=== PATIENT | female | born 1985 | race Caucasian/White ===

== ENCOUNTER 2016-10-26 19:36 | Emergency (ER) | payer OTHER ==
[~2016-10-26] VITALS: Ht 165.1 cm; Wt 65.0 kg
[2016-10-26 19:42] VITALS: BP 143/76; PULSE 93; RESP 14; TEMP 98; O2SAT 100
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
[2016-10-26] MEDS ORDERED: LACTATED RINGER'S 1000 ML INJ 1,000 ML IV ONE (22:00)
== END 2016-10-26 22:26 | disposition home or self-care (01) ==
LOC: HOBED 19:36
DX: Z04.1 Encounter for examination and observation following transport accident (principal); O36.8120 Decreased fetal movements, second trimester, not applicable or unspecified; Z3A.20 20 weeks gestation of pregnancy; V43.52XA Car driver injured in collision with other type car in traffic accident, initial encounter; Y92.414 Local residential or business street as the place of occurrence of the external cause
CPT/HCPCS: 99283

== ENCOUNTER 2017-03-09 05:13 | Inpatient (IN) | payer OTHER ==
[~2017-03-09] VITALS: Ht 154.9 cm; Wt 57.0 kg
[2017-03-09] VITALS (30 sets, daily range): BP systolic 119–173; BP diastolic 38–134; PULSE 72–141; RESP 17–20; TEMP 97.8–98.6
[2017-03-09] MEDS ORDERED: PREN1TAB45 PO (05:57)
[2017-03-09] MEDS ORDERED: LACTATED RINGER'S 1000 ML INJ 1,000 ML IV PRN (06:07)
[2017-03-09] MEDS ORDERED: LACTATED RINGER'S 1000 ML INJ 1,000 ML IV SCH (06:07)
[2017-03-09] MEDS ORDERED: LIDOCAINE HCL 1% 50 ML VIAL I-DERMAL PRN (06:15)
[2017-03-09] MEDS ORDERED: CITRIC ACID-SODIUM CITRATE LIQ 30 ML UDC PO SCH (06:15)
[2017-03-09] MEDS ORDERED: ONDANSETRON HCL 4 MG/2 ML VIAL IV PUSH PRN (06:15)
[2017-03-09] MEDS ORDERED: OXYTOCIN 30 UNITS-500ML PREMIX 500 ML IV ONE ×2 (06:15→16:00)
[2017-03-09] MEDS ORDERED: MINERAL OIL 10 ML VIAL TOPICAL PRN (06:15)
[2017-03-09] MEDS ORDERED: LIDOCAINE HCL 1% 50 ML VIAL INFIL PRN (06:15)
[2017-03-09] MEDS ORDERED: SODIUM CHLORID 0.9% 500 ML INJ 500 ML IV PRN (06:15)
--- NOTE | 2017-03-09 06:16 | PD ---
HPI Chief Complaint ctx Date Seen: Mar 09, 2017 Time Seen: 06:09 Travel History International Travel<30 Days: No Contact w/Intl Traveler<30Days: No Known Affected Area: No History of Present Illness HPI Pt is a 31y/o G1 @ 39.1wks. She has PNC with MOI. She presents today for c/o ctx which started at 2am. +Bloody show. No LOF. +FM. She denies any complications this . GBS neg. Weeks Gestation: 39 Para: 0 : 1 Last Menstrual Period: Mar 09, 2017 History Past Medical History Medical History: Denies Significant Hx Obstetric History Obstetric History 1. current Past Surgical History Narrative Surgical eye sx as a baby Family History Family History: Negative Social History Alcohol Use: No Tobacco Use: No Substance Abuse: No Allergies-Medications (Allergen,Severity, Reaction): Coded Allergies: No Known Allergies (Unverified Adverse Reaction, Unknown, 03/09/17) Home Meds Reported Medications Vit,Calc76/Iron/Folic (Pnv 29-1 Tablet) 29 Mg Iron-1 Mg Tablet, 1 TAB PO DAILY 03/09/17 Review of Systems Except as stated in HPI: all other systems reviewed are Neg Physical Exam Narrative General: well developed, well nourished, uncomfortable with ctx HEENT: normocephalic atraumatic, extraocular movements intact, neck supple Abdomen: soft, gravid, nontender, nondistended Uterus: fundus term Extremities: full range of motion Skin: normal coloration, no rashes, no suspicious skin lesions noted Neurologic: cranial nerves 2-12 grossly intact, normal muscle tone, normal gait Psychiatric: normal mood and affect, appropriate FHTs: 130, +accels, single late appearing decel , moderate variability, reactive [place]: q4m Cvx: 5-6/80/-2 Data Data Vital Signs Reviewed: Yes Orders Orders Ob (2e) Additional Admit Info (03/09/17 05:49) Vital Signs (Adult) .ON ADMISSION (03/09/17 06:07) ^ Labor Status (03/09/17 06:07) ^ Non Stress Test (03/09/17 06:07) Vital Signs (Adult) .Per protocol (03/09/17 06:07) Heart (03/09/17 06:07) Amnioinfusion (03/09/17 06:07) Urinary Catheter Management .ONCE (03/09/17 06:07) Diet Liquid (03/09/17 Breakfast) Lactated Ringer's 1000 Ml Inj (Lr 1000 M (03/09/17 06:07) Lactated Ringer's 1000 Ml Inj (Lr 1000 M (03/09/17 06:07) Sodium Chlorid 0.9% 500 Ml Inj (Ns 500 M (03/09/17 06:15) Sodium Chlor 0.9% 1000 Ml Inj (Ns 1000 M (03/09/17 06:27) Lidocaine 1% Inj (50 Ml) (Xylocaine 1% I (03/09/17 06:15) Citric Acid-Sodium Citrate Liq (Bicitra (03/09/17 06:15) Ondansetron Inj (Zofran Inj) (03/09/17 06:15) Fentanyl Inj (Fentanyl Inj) (03/09/17 06:15) Fentanyl Inj (Fentanyl Inj) (03/09/17 06:15) Complete Blood Count With Diff (03/09/17 06:07) Hold Clot (03/09/17 06:07) Abo/Rh Blood Type (03/09/17 06:07) Urinalysis - C+S If Indicated (03/09/17 06:07) Drug Screen, Random Urine (03/09/17 06:07) Resp Oxygen Non Rebreathe Mask (03/09/17 ) ^ Epidural / Intrathecal Infus (03/09/17 06:07) Oxytocin 30 Units-500ml Premix (Pitocin (03/09/17 06:15) Lidocaine 1% Inj (50 Ml) (Xylocaine 1% I (03/09/17 06:15) Light Mineral Oil (Muri-Lube Oil) (03/09/17 06:15) Group B Strep: Negative MDM Plan 31y/o G1 @ 39.1wks in active labor -- /-2 -- ctx q4m -- GBS neg -- FHTs cat [address] Dr[address] Dunne (button buttonhole marker) notified of pt status and plan of care. He will assume care of the pt. Courtesy orders placed. Diagnosis Diagnosis: Primary Impression: 39 weeks gestation of Additional Impression: Uterine contractions during Ron Sanchez MD Mar 09, 2017 06:16
[2017-03-09 06:22] LABS: AUTOMATED NEUTROPHIL # 5.4 TH/MM3 (1.8-7.7); BASOPHIL % 0.4 % (0.0-2.0); EOSINOPHIL % 0.4 % (0.0-4.0); HEMATOCRIT 33.9 % (35.0-46.0); HEMO FLAGS DIFF FINAL; LYMPHOCYTE # 1.2 TH/MM3 (1.0-4.8); MEAN CELL VOLUME 84.2 FL (80.0-100.0); MEAN CORPUSCULAR HEMOGLOBIN 28.7 PG (27.0-34.0); MEAN CORPUSCULAR HGB CONC 34.1 % (32.0-36.0); MONO % 8.4 % (0.0-8.0); NEUT % 73.8 % (16.0-70.0); PLATELET COUNT 128 TH/MM3 (150-450); RED BLOOD COUNT 4.03 MIL/MM3 (4.00-5.30); RED CELL DISTRIBUTION WIDTH 14.1 % (11.6-17.2); WHITE BLOOD COUNT 7.3 TH/MM3 (4.0-11.0)
[2017-03-09 06:27] LABS: BACTERIA, URINE OCC /hpf; BLOOD, URINE NEG (NEG); CALCIUM OXALATE CRYSTALS,URINE RARE /hpf; COMMENT (UR) CULTURE INDICATED; CULTURE IF INDICATED CULTURE INDICATED; GLUCOSE,URINE NEG (NEG); KETONE, URINE NEG (NEG); MUCUS URINE FEW /lpf (OCC); NITRITE,URINE NEG (NEG); SQUAMOUS EPITHELIAL CELL URINE 14 /hpf (0-5); URINE COLOR LIGHT-YELLOW (YELLW/STRAW)
[2017-03-09] MEDS ORDERED: SODIUM CHLOR 0.9% 1000 ML INJ 1,000 ML IV PRN (06:27)
[2017-03-09] MEDS ORDERED: ePHEDrine/NS 25 MG/5 ML SYRINGE ONE (13:18)
[2017-03-09] MEDS ORDERED: fentaNYL 2MCG-BUPIV 0.125% INJ 100 ML ONE (13:18)
[2017-03-09] MEDS ORDERED: BUPIVACAINE HCL PF 0.25% 10 ML VIAL ONE (13:21)
[2017-03-09] MEDS ORDERED: MEPERIDINE HCL 50 MG/ML VIAL ONE (15:00)
[2017-03-09] MEDS ORDERED: MEPERIDINE HCL 50 MG/ML VIAL IV PUSH ONE (15:15)
[2017-03-09] MEDS ORDERED: OXYTOCIN 30 UNITS-500ML PREMIX 500 ML ONE (15:21)
--- NOTE | 2017-03-09 15:35 | PD.OB.DELI ---
Weeks gestation: 39 Pt started active labor?: Yes Medical induction of labor?: No Artificial rupture of membrane: Yes Artificial ROM date: Mar 09, 2017 Anesthesia: None Episiotomy: Midline Vaginal Delivery: Normal Presentation: Occiput anterior Nuchal Cord: x1 Delayed cord clamping (45 sec): Yes Infant: Female Delivery date: Mar 09, 2017 Delivery time: 14:38 One Minute : 9 Five Minute : 9 Placenta: Spontaneous delivery, Intact, 3 vessel cord Laceration: Perineal laceration, 3 deg Repair: Vicryl running Estimated blood loss: 350 Additional Information Nice delivery of Rosa Elena. Over 2nd degree episiotomy Extended to partial third Repaired in layers with 2-0 and 3-0 vicryl Excellent repair. No epidural or IV meds til after delivery. Nohelia Dunne MD Mar 09, 2017 15:35
[2017-03-09] MEDS ORDERED: BENZOCAINE 20% TOPICAL SPRAY 60 ML CAN TOPICAL PRN (15:45)
[2017-03-09] MEDS ORDERED: WITCH HAZEL 50%/GLYCERIN 12.5% 40 PAD JAR TOPICAL PRN (15:45)
[2017-03-09] MEDS ORDERED: SODIUM CHLORIDE 0.9% FLUSH 10 ML FLUSH IV FLUSH PRN (15:45)
[2017-03-09] MEDS ORDERED: ONDANSETRON ODT 4 MG TAB PO PRN (15:45)
[2017-03-09] MEDS ORDERED: DOCUSATE SODIUM 50 MG/SENNA 8.6 MG TAB PO PRN (15:45)
[2017-03-09] MEDS ORDERED: ALUMINUM/MAGNESIUM/SIMETH 30 ML CUP PO PRN (15:45)
[2017-03-09] MEDS ORDERED: DIPHTH/TETANUS/ACEL PERTUSSIS (BOOSTER) 0.5 ML VIAL/PFS IM ONE (16:00)
[2017-03-09] MEDS ORDERED: OXYTOCIN 30 UNITS-500ML PREMIX 500 ML IV SCH (16:00)
[2017-03-09] MEDS ORDERED: MEASLES, MUMPS, RUBELLA VACCINE 0.5 ML VIAL SQ ONE (16:00)
[2017-03-09] MEDS ORDERED: oxyCODONE/ACETAMINOPHEN 5 MG/325 MG TAB PO PRN (16:30)
[2017-03-09] MEDS: IBUPROFEN 800 MG TAB PO PRN (20:12)
[2017-03-09] MEDS: ACETAMINOPHEN 325 MG TAB PO PRN (20:15)
[2017-03-09] MEDS ORDERED: ZOLPIDEM TARTRATE 5 MG TAB PO PRN (21:00)
[2017-03-09] MEDS ORDERED: SODIUM CHLORIDE 0.9% FLUSH 10 ML FLUSH IV FLUSH SCH (21:00)
[2017-03-10] MEDS: ACETAMINOPHEN 325 MG TAB PO PRN ×2 (05:04→14:21)
[2017-03-10] MEDS: IBUPROFEN 800 MG TAB PO PRN ×2 (05:04→14:20)
[2017-03-10 07:40] VITALS: BP 126/62; PULSE 82; RESP 18; TEMP 98.2
[2017-03-10] MEDS ORDERED: PRENATAL VITAMIN CHEWABLE TAB PO SCH (09:00)
--- NOTE | 2017-03-10 14:18 | HHI.OB ---
Subjective Post Day: 1 Remarks Doing well Bleeding is ok Pain is well controlled. Ready to go home. Objective Vitals/I&O Vital Signs Date Time Temp Pulse Resp B/P (MAP) Pulse Ox O2 Delivery O2 Flow Rate FiO2 03/10/17 07:40 98.2 82 18 126/62 (83) 03/09/17 19:22 98.6 100 18 125/76 (92) 03/09/17 16:20 115 127/38 (67) 03/09/17 16:15 108 132/85 (101) 03/09/17 16:00 121 119/93 (102) 03/09/17 15:46 116 142/75 (97) 03/09/17 15:34 118 128/76 (93) 03/09/17 15:30 141 173/134 (147) 03/09/17 15:15 113 129/73 (91) 03/09/17 15:15 98.1 20 03/09/17 15:04 116 132/84 (100) 03/09/17 15:00 105 03/09/17 14:45 117 121/60 (80) Objective Remarks GENERAL: Well-nourished, well-developed patient. CARDIOVASCULAR: Regular rate and rhythm without murmurs, gallops, or rubs. RESPIRATORY: Breath sounds equal bilaterally. No accessory muscle use. ABDOMEN/GI: Abdomen soft, non-tender. Fundus: Firm, non-tender at umbilicus. GENITOURINARY: Light to moderate bleeding. EXTREMITIES: No cyanosis or edema, non-tender, without signs of DVT. Medications and IVs Current Medications Medications (Trade) Dose Ordered Sig/Pedro Route Start Time Stop Time Status Last Admin (NS Flush) 2 ml BID IV FLUSH 03/09/17 21:00 (NS Flush) 2 ml UNSCH PRN IV FLUSH 03/09/17 15:45 (Tylenol) 650 mg Q4H PRN PO 03/09/17 15:45 03/10/17 05:04 (Motrin) 800 mg Q8H PRN PO 03/09/17 15:45 03/10/17 05:04 (Percocet 5-325 Mg) 1 tab Q4H PRN PO 03/09/17 16:30 (Americaine 20% Top Spr) 1 spray Q4H PRN TOPICAL 03/09/17 15:45 03/09/17 18:00 (Tucks Pads) 1 applic QID PRN TOPICAL 03/09/17 15:45 03/09/17 18:00 (Marisa-Colace) 2 tab Q12H PRN PO 03/09/17 15:45 03/09/17 20:12 (Ambien) 5 mg HS PRN PO 03/09/17 21:00 (Mag-Al Plus Susp Liq) 15 ml Q8H PRN PO 03/09/17 15:45 (Zofran Odt) 4 mg Q6H PRN PO 03/09/17 15:45 Non-Formulary Medication 1 tab DAILY PO 03/10/17 09:00 UNV Assessment/Plan Assessment and Plan PPD #1 Doing well Wants to go home. Nohelia Dunne MD Mar 10, 2017 14:18
[2017-03-10] MEDS ORDERED: OXYC1TAB63 PO (14:28)
[2017-03-10] MEDS ORDERED: PERI PO (14:28)
[2017-03-10] MEDS ORDERED: IBUP1TAB7 PO (14:28)
--- NOTE | 2017-03-10 14:29 | HHI.DCPOC ---
Discharge Care Plan Diagnosis: (1) Third degree obstetrical tear (2) Vaginal delivery (3) 39 weeks gestation of Report Symptoms to Your Doctor -Temperature above 100.5 degrees -Redness, of incision or excessive or foul smelling drainage -Unusual pain or calf pain -Increased vaginal bleeding -Painful or difficulty urinating -Feelings of extreme sadness or anxiety after 2 weeks Goals to Promote Your Health * To prevent worsening of your condition and complications * To maintain your health at the optimal level Directions to Meet Your Goals Take your medications as prescribed Follow your dietary instruction Follow activity as directed Ensure plenty of rest for recovery Drink fluids for hydration Keep your appointments as scheduled Take your immunizations and boosters as scheduled If your symptoms worsen call your PCP, if no PCP go to Urgent Care Center or Emergency Room Smoking is Dangerous to Your Health. Avoid second hand smoke Call the 24-hour crisis hotline for domestic abuse at Nohelia Dunne MD Mar 10, 2017 14:29
== END 2017-03-10 18:16 | disposition home or self-care (01) | DRG 775 ==
LOC: HOBED 05:13 → H2EB 05:49 → H1EA 16:46
PROVIDERS: ADMIT Obstetrics & Gynecology; ATTEND Obstetrics & Gynecology
PROC: 10E0XZZ Delivery of Products of Conception, External Approach (ICD-10-PCS; principal; 2017-03-09)
PROC: 0DQR0ZZ Repair Anal Sphincter, Open Approach (ICD-10-PCS; 2017-03-09)
PROC: 0W8NXZZ Division of Female Perineum, External Approach (ICD-10-PCS; 2017-03-09)
PROC: 10907ZC Drainage of Amniotic Fluid, Therapeutic from Products of Conception, Via Natural or Artificial Opening (ICD-10-PCS; 2017-03-09)
DX: O69.81X0 Labor and delivery complicated by cord around neck, without compression, not applicable or unspecified (principal); O70.20 Third degree perineal laceration during delivery, unspecified; Z37.0 Single live birth; Z3A.39 39 weeks gestation of pregnancy
CPT/HCPCS: 80307; 81001; 85025; 86900; 86901; 87086; J2175; J2405; J2590; J7120

== ENCOUNTER 2017-03-15 14:23 | Observation (INO) | payer OTHER ==
[~2017-03-15] VITALS: Ht 154.9 cm; Wt 54.0 kg
[~2017-03-15 14:23] MED LIST: IBUP1TAB7 PO; OXYC1TAB63 PO; PERI PO; PREN1TAB45 PO
[2017-03-15 14:24] VITALS: BP 130/74; PULSE 137; RESP 20; TEMP 102.9; O2SAT 99
[2017-03-15] MEDS ORDERED: IOHEXOL 350 MG/ML 10 ML VIAL (for RAD DIAG) IVCONTRAST ONE (14:24)
[2017-03-15 16:04] VITALS: BP 109/78; PULSE 109; RESP 18; TEMP 99.5; O2SAT 98
[2017-03-15] MEDS ORDERED: IBUPROFEN 800 MG TAB PO ONE (16:30)
--- NOTE | 2017-03-15 16:35 | PD ---
HPI Chief Complaint: Abdominal Pain Time Seen by Provider: 15:16 Travel History International Travel<30 days: No Contact w/Intl Traveler<30days: No Traveled to known affect area: No History of Present Illness HPI 31-year-old female presents emergency department for evaluation of right-sided lower quadrant abdominal pain and fever. Patient had a vaginal delivery at our facility on 09 March. . 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 Her OB stated her lochia appeared to be within normal limits and her pelvic exam was unremarkable. Patient referred to the emergency department at that time. Patient states the symptoms started this morning. She denies any hematuria or dysuria. She denies any vomiting however she states she felt nauseous. Patient is found to be febrile and tachycardic in triage. Patient has no other major medical history. The only medication she takes daily as a vitamin. PFSH Past Medical History ?: Not : 1 Para: 1 Social History Alcohol Use: No Tobacco Use: No Substance Use: No Allergies-Medications (Allergen,Severity, Reaction): Coded Allergies: No Known Allergies (Unverified Allergy, Unknown, 03/09/17) Reported Meds & Prescriptions Reported Meds & Active Scripts Active Gnp Senna Plus 8.6-50 mg (Sennosides-Docusate Sodium) 8.6 Mg-50 Mg Tab 2 Tab PO Q12H PRN Ibuprofen 800 Mg Tab 800 Mg PO Q8H PRN Reported Pnv 29-1 Tablet ( Vit,Calc76/Iron/Folic) 29 Mg Iron-1 Mg Tablet 1 Tab PO DAILY Review of Systems Except as stated in HPI: all other systems reviewed are Neg Physical Exam Narrative GENERAL: Well-nourished, well-developed 31-year-old female patient. Febrile. SKIN: Focused skin assessment warm/dry. HEAD: Normocephalic. Atraumatic. EYES: No scleral icterus. No injection or drainage. NECK: Supple, trachea midline. No JVD or lymphadenopathy. CARDIOVASCULAR: Tachycardic regular rate and rhythm without murmurs, gallops, or rubs. RESPIRATORY: Breath sounds equal bilaterally. No accessory muscle use. GASTROINTESTINAL: Abdomen soft, right lower quadrant tenderness. MUSCULOSKELETAL: No cyanosis, or edema. BACK: Nontender without obvious deformity. No CVA tenderness. Data Data Last Documented VS Vital Signs Date Time Temp Pulse Resp B/P (MAP) Pulse Ox O2 Delivery O2 Flow Rate FiO2 03/15/17 17:32 99.2 102 18 127/73 (91) 99 Room Air Orders Orders Complete Blood Count With Diff (03/15/17 14:33) Comprehensive Metabolic Panel (03/15/17 14:33) Lipase (03/15/17 14:33) Lactic Acid (03/15/17 14:33) Urinalysis - C+S If Indicated (03/15/17 14:33) Ct Abd/Pel W Iv Contrast(Rout) (03/15/17 16:08) Ibuprofen (Motrin) (03/15/17 16:30) Urine Culture (03/15/17 15:41) Iohexol 350 Inj (Omnipaque 350 Inj) (03/15/17 14:24) Admit Order (Ed Use Only) (03/15/17 ) Public Address Announcer / Telemetry GIO.Q8H (03/15/17 17:40) Vital Signs (Adult) Q4H (03/15/17 17:40) Activity Oob With Assistance (03/15/17 17:40) Notify Dr: Other (03/15/17 17:40) Labs Laboratory Tests Test 03/15/17 15:41 03/15/17 15:50 Urine Color LIGHT-YELLOW Urine Turbidity CLEAR Urine pH 5.5 Urine Specific [place] 1.009 Urine Protein NEG mg/dL Urine Glucose (UA) NEG mg/dL Urine Ketones 10 mg/dL Urine Occult Blood MOD Urine Nitrite NEG Urine Bilirubin NEG Urine Urobilinogen LESS THAN 2.0 MG/DL Urine Leukocyte Esterase LARGE Urine RBC 9 /hpf Urine WBC 9 /hpf Microscopic Urinalysis Comment CULTURE INDICATED White Blood Count 8.1 TH/MM3 Red Blood Count 2.81 MIL/MM3 Hemoglobin 8.0 GM/DL Hematocrit 24.2 % Mean Corpuscular Volume 86.3 FL Mean Corpuscular Hemoglobin 28.5 PG Mean Corpuscular Hemoglobin Concent 33.1 % Red Cell Distribution Width 15.0 % Platelet Count 242 TH/MM3 Mean Platelet Volume 7.6 FL Neutrophils (%) (Auto) 86.1 % Lymphocytes (%) (Auto) 6.7 % Monocytes (%) (Auto) 6.0 % Eosinophils (%) (Auto) 1.1 % Basophils (%) (Auto) 0.1 % Neutrophils # (Auto) 7.0 TH/MM3 Lymphocytes # (Auto) 0.5 TH/MM3 Monocytes # (Auto) 0.5 TH/MM3 Eosinophils # (Auto) 0.1 TH/MM3 Basophils # (Auto) 0.0 TH/MM3 CBC Comment DIFF FINAL Differential Comment Blood Urea Nitrogen 11 MG/DL Creatinine 0.52 MG/DL Random Glucose 79 MG/DL Total Protein 6.8 GM/DL Albumin 2.7 GM/DL Calcium Level 8.5 MG/DL Alkaline Phosphatase 107 U/L Aspartate Amino Transf (AST/SGOT) 41 U/L Alanine Aminotransferase (ALT/SGPT) 78 U/L Total Bilirubin 0.3 MG/DL Sodium Level 140 MEQ/L Potassium Level 3.5 MEQ/L Chloride Level 108 MEQ/L Carbon Dioxide Level 22.5 MEQ/L Anion Gap 10 MEQ/L Estimat Glomerular Filtration Rate 138 ML/MIN Lactic Acid Level 0.7 mmol/L Lipase 86 U/L [facility] Medical Decision Making Medical Screen Exam Complete: Yes Emergency Medical Condition: Yes Interpretation(s) Febrile, tachycardic Differential Diagnosis Differential diagnoses include but not limited to appendicitis, nephrolithiasis , pancreatitis, cholecystitis, endometritis Narrative Course Patient placed on monitor and IV obtained. Blood was sent to lab. CBC, CMP, lipase, lactic acid, UA ordered and pending. Abdominal CT ordered and pending. Ibuprofen ordered for pain and fever. CBC shows anemia with HBG 8.0 CMP mildly elevated LFTs, otherwise no acute abnormalities. Lactic acid is within normal limits at 0.7 Lipase within normal limits at 86 UA shows esterase, WBCs with culture indicated. Abdominal CT Dr Crow ordered broad spectrum IV antibiotics and admitted the patient to the hospital for observation. Last Impressions Abdomen/Pelvis CT 03/15/17 1608 Signed Impressions: Service Date/Time: Wednesday, March 15, 2017 16:47 - CONCLUSION: Enlarged, uterus situated eccentric to the right within the pelvis. Mild bilateral hydronephrosis. García Bradshaw MD Diagnosis Primary Impression: Abdominal pain Qualified Codes: R10.9 - Unspecified abdominal pain Additional Impression: Fever Qualified Codes: R50.9 - Fever, unspecified Admitting Information Admitting Physician Requests: Observation Merna Almodovar [facility] Mar 15, 2017 16:35
[2017-03-15 16:37] LABS: BILIRUBIN, URINE NEG (NEG); BLOOD, URINE MOD (NEG); GLUCOSE,URINE NEG (NEG); KETONE, URINE 10 mg/dL (NEG); NITRITE,URINE NEG (NEG); PH, URINE 5.5 (5.0-8.5); URINE COLOR LIGHT-YELLOW (YELLW/STRAW); URINE LEUKOCYTE ESTERASE LARGE (NEG)
[2017-03-15 16:37] LABS: BASOPHIL % 0.1 % (0.0-2.0); EOSINOPHIL # 0.1 TH/MM3 (0-0.4); EOSINOPHIL % 1.1 % (0.0-4.0); HEMATOCRIT 24.2 % (35.0-46.0); LYMPH % 6.7 % (9.0-44.0); LYMPHOCYTE # 0.5 TH/MM3 (1.0-4.8); MEAN CELL VOLUME 86.3 FL (80.0-100.0); MEAN CORPUSCULAR HEMOGLOBIN 28.5 PG (27.0-34.0); MEAN CORPUSCULAR HGB CONC 33.1 % (32.0-36.0); MEAN PLATELET VOLUME 7.6 FL (7.0-11.0); MONOCYTE # 0.5 TH/MM3 (0-0.9); NEUT % 86.1 % (16.0-70.0); PLATELET COUNT 242 TH/MM3 (150-450); RED BLOOD COUNT 2.81 MIL/MM3 (4.00-5.30); WHITE BLOOD COUNT 8.1 TH/MM3 (4.0-11.0)
[2017-03-15 16:40] LABS: ALBUMIN 2.7 GM/DL (3.4-5.0); AST (GOT) 41 U/L (15-37); BICARBONATE 22.5 MEQ/L (21.0-32.0); BLOOD UREA NITROGEN 11 MG/DL (7-18); CALCIUM 8.5 MG/DL (8.5-10.1); CHLORIDE 108 MEQ/L (98-107); CREATININE 0.52 MG/DL (0.50-1.00); GLOMERULAR FILTRATION RATE 138 ML/MIN (>89); GLUCOSE,RANDOM 79 MG/DL (74-106); LIPASE 86 U/L (73-393); SODIUM (NA) 140 MEQ/L (136-145)
[2017-03-15 16:44] LABS: ALKALINE PHOSPHATASE 107 U/L (45-117); ALT (GPT) 78 U/L (10-53); TOTAL BILIRUBIN ADULT 0.3 MG/DL (0.2-1.0); TOTAL PROTEIN 6.8 GM/DL (6.4-8.2)
--- NOTE | 2017-03-15 17:12 | RADRPT ---
EXAM DATE/TIME: 03/15/2017 16:47 [facility] COMPARISON: No previous studies available for comparison. INDICATIONS : Right sided abdomen pain for 1 week. IV CONTRAST: 70 cc Omnipaque 350 (iohexol) IV ORAL CONTRAST: No oral contrast ingested. RADIATION DOSE: 6.88 CTDIvol (mGy) MEDICAL HISTORY : None SURGICAL HISTORY : None. ENCOUNTER: Initial ACUITY: 1 week PAIN SCALE: 6/10 LOCATION: Right abdomen TECHNIQUE: Volumetric scanning of the abdomen and pelvis was performed. Using automated exposure control and ad justment of the mA and/or kV according to patient size, radiation dose was kept as low as reasonably achievable to obtain optimal diagnostic quality images. DICOM format image data is available electro nically for review and comparison. FINDINGS: LOWER LUNGS: The visualized lower lungs are clear. LIVER: Homogeneous density without lesion. There is no dilation of the biliary tree. No calcified gallston es. SPLEEN: Normal size without lesion. PANCREAS: Within normal limits. KIDNEYS: Mild bilateral hydronephrosis and hydroureter ADRENAL GLANDS: Within normal limits. VASCULAR: There is no aortic aneurysm. BOWEL/MESENTERY: The stomach, small bowel, and colon demonstrate no acute abnormality. There is no free intraperitone al air or fluid. ABDOMINAL WALL: Within normal limits. RETROPERITONEUM: There is no lymphadenopathy. BLADDER: No wall thickening or mass. REPRODUCTIVE: uterus, positioned asymmetrically to the right within the pelvis. INGUINAL: There is no lymphadenopathy or hernia. MUSCULOSKELETAL: Within normal limits for patient age. CONCLUSION: Enlarged, uterus situated eccentric to the right within the pelvis. Mild bilateral hydronephrosis. García Bradshaw MD on March 15, 2017 at 17:06 Board Certified Radiologist. This report was verified electronically.
[2017-03-15 17:32] VITALS: BP 127/73; PULSE 102; RESP 18; TEMP 99.2; O2SAT 99
[2017-03-15] MEDS ORDERED: SODIUM CHLOR 0.9% 1000 ML INJ 1,000 ML IV ONE (17:46)
[2017-03-15] MEDS ORDERED: SODIUM CHLOR 0.9% 1000 ML INJ 800 ML IV ONE (17:46)
[2017-03-15] MEDS ORDERED: WITCH HAZEL 50%/GLYCERIN 12.5% 40 PAD JAR TOPICAL PRN (18:00)
[2017-03-15] MEDS ORDERED: ALUMINUM/MAGNESIUM/SIMETH 30 ML CUP PO PRN (18:00)
[2017-03-15] MEDS ORDERED: ONDANSETRON ODT 4 MG TAB PO PRN (18:00)
[2017-03-15] MEDS ORDERED: ZOLPIDEM TARTRATE 5 MG TAB PO PRN (18:00)
[2017-03-15] MEDS ORDERED: SODIUM CHLORIDE 0.9% FLUSH 10 ML FLUSH IV FLUSH PRN (18:00)
[2017-03-15] MEDS ORDERED: BENZOCAINE 20% TOPICAL SPRAY 60 ML CAN TOPICAL PRN (18:00)
[2017-03-15] MEDS ORDERED: IBUPROFEN 800 MG TAB PO PRN (18:00)
[2017-03-15 18:12] VITALS: RESP 18; O2SAT 98
--- NOTE | 2017-03-15 18:38 | HHI.HP ---
HPI Chief Complaint abdominal pain Travel History International Travel<30 Days: No Contact w/Intl Traveler<30Days: No Known Affected Area: No History of Present Illness HPI 31 yo 5 d pp s/p presented for visit in office w c/o ble edema. During examination, she had significant abdominal tenderness. States that abd tenderness started on drive to hospital. She also noted that she was starting to feel fatigued, was shivering (but attributes this to pain). She states that she started to have right back pain, radiates to anterior abdomen and rlq. She presently has diffuse abdominal pain and can not pinpoint one area of pain. In the office she had significant guarding and exam was limited. SVE was performed and she had mild uterine tenderness but much more significant rlq and ruq tenderness. She had normal appearing lochia, wet prep without bv or wbc, + rbc. Perineal repair intact and no evidence of infection. She denies frequent urination. She is breast feeding. She had not noted any fevers at home but started feeling warm when she left home and was on route to the hospital. On Ed evaluation she had temp on 102.9F, repeat 99F. She had tachycardia. CT with mild hydronephrosis, enlarged pp uterus, no acute intra-abdominal findings suggestive of appendicitis or cholecystitis. Para: 1 : 1 History Past Medical History Medical History: Denies Significant Hx Past Surgical History Narrative Surgical eye surgery as a child Surgical History: No Previous Surgery Family History Family History: Negative Social History Alcohol Use: No Tobacco Use: No Substance Abuse: No Allergies-Medications (Allergen,Severity, Reaction): Coded Allergies: No Known Allergies (Unverified Allergy, Unknown, 03/09/17) Home Meds Active Scripts Sennosides-Docusate Sodium (Gnp Senna Plus 8.6-50 mg) 8.6 Mg-50 Mg Tab, 2 TAB PO Q12H Y for CONSTIPATION, #60 TAB Prov:Nohelia Dunne MD 03/10/17 Ibuprofen (Ibuprofen) 800 Mg Tab, 800 MG PO Q8H Y for CRAMPING, #30 TAB Prov:Nohelia Dunne MD 03/10/17 Reported Medications Vit,Calc76/Iron/Folic (Pnv 29-1 Tablet) 29 Mg Iron-1 Mg Tablet, 1 TAB PO DAILY 03/09/17 Discontinued Scripts Oxycodone HCl/Acetaminophen (Oxycodone-Acetaminophen 5-325) 5 Mg-325 Mg Tablet, 1 TAB PO Q4H Y for moderate pain, #15 TAB Prov:Nohelia Dunne MD 03/10/17 Review of Systems General / Constitutional: Fever, Chills Eyes: No: Diploplia, Blurred Vision, Visual changes, Pain, Photophobia, Other HENT: No: Headaches, Vertigo, Dental Difficulties, Lightheadedness, Other Cardiovascular: Tachycardia, Edema Respiratory: No: Cough, Short of Breath, Wheezing, Other Gastrointestinal: Nausea, Abdominal Pain, Constipation Genitourinary: No: Decreased Urinary Output, Oliguria Musculoskeletal: No: Limited ROM, Weakness, Cramping, Edema, Pain, Other Skin: No Rash, No Itching, No Dryness, No Lumps, No Change in Pigmentation, No Change in Nails, No Alopecia, No Lesions, No Breast Lumps, No Breast Tenderness , No Breast Swelling, No Other Neurologic: Weakness Psychiatric: No: Anxiety, Depression, Suicidal Ideations, Disorder of Thought, Mood Disorder, Substance Abuse, Homicidal Ideation, Other Endocrine: No: Heat Intolerance, Cold Intolerance, Polydipsia, Polyuria, Other Hematologic/Lymphatic: No Easy Bruising, No Lymph Node Enlargement, No Other Physical Exam Vital Signs Date Time Temp Pulse Resp B/P (MAP) Pulse Ox O2 Delivery O2 Flow Rate FiO2 03/15/17 18:12 98 Room Air 03/15/17 18:12 18 98 Room Air 03/15/17 17:32 99.2 102 18 127/73 (91) 99 Room Air 03/15/17 16:04 99.5 109 18 109/78 (88) 98 Room Air 03/15/17 15:57 18 03/15/17 14:24 102.9 137 20 130/74 (92) 99 Room Air Narrative GENERAL: Well-nourished, well-developed patient. SKIN: Warm and dry. HEAD: Normocephalic and atraumatic. EYES: No scleral icterus. No injection or drainage. ENT: No nasal drainage noted. Mucous membranes pink. Airway patent. NECK: Supple, trachea midline. No JVD. CARDIOVASCULAR: Regular rate and rhythm without murmurs, gallops, or rubs. RESPIRATORY: Breath sounds equal bilaterally. No accessory muscle use. BREASTS: Bilateral exam showed no masses , no retractions, no nipple discharge. ABDOMEN/GI: Abdomen tender, bowel sounds present, rebound, guarding Fundal Height:14 GENITOURINARY: External Genitalia: intact and normal in appearance BUS glands: [-] Cervix: closed Min uterine tenderness EXTREMITIES: No cyanosis or edema. BACK: Nontender without obvious deformity. No CVA tenderness. NEUROLOGICAL: Awake and alert. Motor and sensory grossly within normal limits. Five out of 5 muscle strength in all muscle groups. Normal speech. Caprini VTE Risk Assessment Caprini VTE Risk Assessment: No/Low Risk (score <= 1) Caprini Risk Assessment Model Point Value = 1 Point Value = 2 Point Value = 3 Point Value = 5 Age 41-60 Minor surgery BMI > 25 kg/m2 Swollen legs Varicose veins or History of unexplained or recurrent spontaneous Oral contraceptives or hormone replacement Sepsis (< 1 month) Serious lung disease, including pneumonia (< 1 month) Abnormal pulmonary function Acute myocardial infarction Congestive heart failure (< 1 month) History of inflammatory bowel disease Medical patient at bed rest Age 61-74 Arthroscopic surgery Major open surgery (> 45 min) Laparoscopic surgery (> 45 min) Malignancy Confined to bed (> 72 hours) Immobilizing plaster cast Central venous access Age >= 75 History of VTE Family history of VTE Factor V Leiden Prothrombin [id number] Lupus anticoagulant Anticardiolipin antibodies Elevated serum homocysteine Heparin-induced thrombocytopenia Other congenital or acquired thrombophilia Stroke (< 1 month) Elective arthroplasty Hip, pelvis, or leg fracture Acute spinal cord injury (< 1 month) Prophylaxis Regimen Total Risk Factor Score Risk Level Prophylaxis Regimen 0-1 Low Early ambulation 2 Moderate Order ONE of the following: *Sequential Compression Device (SCD) *Heparin 5000 units SQ BID 3-4 Higher Order ONE of the following medications: *Heparin 5000 units SQ TID *Enoxaparin/Lovenox 40 mg SQ daily (WT < 150 kg, CrCl > 30 mL/min) *Enoxaparin/Lovenox 30 mg SQ daily (WT < 150 kg, CrCl > 10-29 mL/min) *Enoxaparin/Lovenox 30 mg SQ BID (WT < 150 kg, CrCl > 30 mL/min) AND/OR *Sequential Compression Device (SCD) 5 or more Highest Order ONE of the following medications: *Heparin 5000 units SQ TID (Preferred with Epidurals) *Enoxaparin/Lovenox 40 mg SQ daily (WT < 150 kg, CrCl > 30 mL/min) *Enoxaparin/Lovenox 30 mg SQ daily (WT < 150 kg, CrCl > 10-29 mL/min) *Enoxaparin/Lovenox 30 mg SQ BID (WT < 150 kg, CrCl > 30 mL/min) AND *Sequential Compression Device (SCD) Data Data Vital Signs Reviewed: Yes Orders Orders Complete Blood Count With Diff (03/15/17 14:33) Comprehensive Metabolic Panel (03/15/17 14:33) Lipase (03/15/17 14:33) Lactic Acid (03/15/17 14:33) Urinalysis - C+S If Indicated (03/15/17 14:33) Ct Abd/Pel W Iv Contrast(Rout) (03/15/17 16:08) Ibuprofen (Motrin) (03/15/17 16:30) Urine Culture (03/15/17 15:41) Iohexol 350 Inj (Omnipaque 350 Inj) (03/15/17 14:24) Admit Order (Ed Use Only) (03/15/17 ) Gas Controller / Telemetry GIO.Q8H (03/15/17 17:40) Vital Signs (Adult) Q4H (03/15/17 17:40) Activity Oob With Assistance (03/15/17 17:40) Notify Dr: Other (03/15/17 17:40) Blood Culture (03/15/17 17:46) Ecg Monitoring (03/15/17 17:46) Iv Access Insert/Monitor (03/15/17 17:46) Oximetry (03/15/17 17:46) Oxygen Administration (03/15/17 17:46) Sodium Chlor 0.9% 1000 Ml Inj (Ns 1000 M (03/15/17 17:46) Sodium Chlor 0.9% 1000 Ml Inj (Ns 1000 M (03/15/17 17:46) Clindamycin 900 Mg/Ns Premix (Cleocin 90 (03/15/17 18:00) Gentamicin Inj (Gentamicin Inj) (03/15/17 18:00) Vital Signs (Adult) .QSHIFT (03/15/17 18:00) Activity Oob Ad Anh (03/15/17 18:00) Ice / Cold Pack PRN (03/15/17 18:00) Sitz Bath PRN (03/15/17 18:00) Diet Regular Basic (03/15/17 Dinner) Sodium Chloride 0.9% Flush (Ns Flush) (03/15/17 21:00) Sodium Chloride 0.9% Flush (Ns Flush) (03/15/17 18:00) Acetaminophen (Tylenol) (03/15/17 18:00) Ibuprofen (Motrin) (03/15/17 18:00) Oxycodone-Acetamin 5-325 Mg (Percocet (03/15/17 18:00) Benzocaine 20% Top Spr (Americaine 20% T (03/15/17 18:00) Witch Nga-Glycerin Pad (Tucks Pads) (03/15/17 18:00) Docusate Sodium-Senna (Marisa-Colace) (03/15/17 18:00) Zolpidem (Ambien) (03/15/17 18:00) Al-Mag Hy-Si 40-40-4 Mg/Ml Liq (Mag-Al P (03/15/17 18:00) Ondansetron Odt (Zofran Odt) (03/15/17 18:00) Comprehensive Metabolic Panel (03/16/17 06:00) Complete Blood Count With Diff (03/16/17 06:00) Lactated Ringer's 1000 Ml Inj (Lr 1000 M (03/15/17 18:15) Group B Strep: Negative Labs Laboratory Tests Test 03/15/17 15:41 03/15/17 15:50 Urine Color LIGHT-YELLOW Urine Turbidity CLEAR Urine pH 5.5 Urine Specific [place] 1.009 Urine Protein NEG Urine Glucose (UA) NEG Urine Ketones 10 Urine Occult Blood MOD Urine Nitrite NEG Urine Bilirubin NEG Urine Urobilinogen LESS THAN 2.0 Urine Leukocyte Esterase LARGE Urine RBC 9 Urine WBC 9 Microscopic Urinalysis Comment CULTURE INDICATED White Blood Count 8.1 Red Blood Count 2.81 Hemoglobin 8.0 Hematocrit 24.2 Mean Corpuscular Volume 86.3 Mean Corpuscular Hemoglobin 28.5 Mean Corpuscular Hemoglobin Concent 33.1 Red Cell Distribution Width 15.0 Platelet Count 242 Mean Platelet Volume 7.6 Neutrophils (%) (Auto) 86.1 Lymphocytes (%) (Auto) 6.7 Monocytes (%) (Auto) 6.0 Eosinophils (%) (Auto) 1.1 Basophils (%) (Auto) 0.1 Neutrophils # (Auto) 7.0 Lymphocytes # (Auto) 0.5 Monocytes # (Auto) 0.5 Eosinophils # (Auto) 0.1 Basophils # (Auto) 0.0 CBC Comment DIFF FINAL Differential Comment Blood Urea Nitrogen 11 Creatinine 0.52 Random Glucose 79 Total Protein 6.8 Albumin 2.7 Calcium Level 8.5 Alkaline Phosphatase 107 Aspartate Amino Transf (AST/SGOT) 41 Alanine Aminotransferase (ALT/SGPT) 78 Total Bilirubin 0.3 Sodium Level 140 Potassium Level 3.5 Chloride Level 108 Carbon Dioxide Level 22.5 Anion Gap 10 Estimat Glomerular Filtration Rate 138 Lactic Acid Level 0.7 Lipase 86 Date/Time Source Procedure Growth Status 03/15/17 15:41 Urine Clean Catch Urine Culture Pending Received Assessment/Plan Problem List: (1) pain ICD Codes: O90.89 - Other complications of the puerperium, not elsewhere classified; R52 - Pain, unspecified (2) Sepsis ICD Codes: A41.9 - Sepsis, unspecified organism Assessment and Plan 31 yo 5 d pp being admitted for sepsis. Most likely source would be endometritis. Blood cx and ucx have been ordered. No current wbc count. Will repeat labs in am. Admit for IVF, Clindamycin, Gentamicin. Tylenol for fever prn, ibuprofen and percocet for pain. Nhung Strong MD Mar 15, 2017 18:38
[2017-03-15 18:44] VITALS: BP 116/79; PULSE 97; RESP 18; TEMP 98.8; O2SAT 99
[2017-03-15] MEDS: DOCUSATE SODIUM 50 MG/SENNA 8.6 MG TAB PO SCH (18:46)
[2017-03-15] MEDS: ACETAMINOPHEN 325 MG TAB PO PRN (18:47)
[2017-03-15] MEDS ORDERED: CLINDAMYCIN 900 MG/NS PREMIX 50 ML IV SCH (20:00)
[2017-03-15] MEDS: LACTATED RINGER'S 1000 ML INJ 1,000 ML IV SCH (20:12)
[2017-03-15] MEDS: GENTAMICIN INJ 150 MG in SODIUM CHLORIDE 0.9% INJ 100 ML IV SCH (20:22)
[2017-03-15] MEDS: SODIUM CHLORIDE 0.9% FLUSH 10 ML FLUSH IV FLUSH SCH (21:00)
[2017-03-15] MEDS ORDERED: GENTAMICIN INJ 150 MG in SODIUM CHLORIDE 0.9% INJ 100 ML IV SCH (21:00)
[2017-03-15] MEDS: oxyCODONE/ACETAMINOPHEN 5 MG/325 MG TAB PO PRN (21:41)
[2017-03-15] MEDS: CLINDAMYCIN 900 MG/NS PREMIX 50 ML IV SCH (21:41)
[2017-03-16] VITALS (8 sets, daily range): BP systolic 110–133; BP diastolic 57–76; PULSE 79–117; RESP 17–19; TEMP 97.4–98.9; O2SAT 98–99
[2017-03-16 02:31] LABS: AUTOMATED NEUTROPHIL # 6.2 TH/MM3 (1.8-7.7); BASOPHIL % 0.2 % (0.0-2.0); EOSINOPHIL # 0.1 TH/MM3 (0-0.4); EOSINOPHIL % 1.8 % (0.0-4.0); HEMATOCRIT 21.3 % (35.0-46.0); HEMOGLOBIN 7.1 GM/DL (11.6-15.3); LYMPH % 12.7 % (9.0-44.0); MEAN CELL VOLUME 87.4 FL (80.0-100.0); MEAN CORPUSCULAR HEMOGLOBIN 29.3 PG (27.0-34.0); MEAN CORPUSCULAR HGB CONC 33.5 % (32.0-36.0); MEAN PLATELET VOLUME 7.7 FL (7.0-11.0); MONO % 6.9 % (0.0-8.0); MONOCYTE # 0.5 TH/MM3 (0-0.9); NEUT % 78.4 % (16.0-70.0); PLATELET COUNT 244 TH/MM3 (150-450); RED BLOOD COUNT 2.44 MIL/MM3 (4.00-5.30); RED CELL DISTRIBUTION WIDTH 14.8 % (11.6-17.2); WHITE BLOOD COUNT 7.9 TH/MM3 (4.0-11.0)
[2017-03-16 03:20] LABS: ALBUMIN 2.1 GM/DL (3.4-5.0); ALKALINE PHOSPHATASE 90 U/L (45-117); ALT (GPT) 58 U/L (10-53); AST (GOT) 28 U/L (15-37); BICARBONATE 22.2 MEQ/L (21.0-32.0); BLOOD UREA NITROGEN 12 MG/DL (7-18); CALCIUM 7.7 MG/DL (8.5-10.1); CHLORIDE 113 MEQ/L (98-107); CREATININE 0.53 MG/DL (0.50-1.00); GLOMERULAR FILTRATION RATE 135 ML/MIN (>89); GLUCOSE,RANDOM 87 MG/DL (74-106); SODIUM (NA) 143 MEQ/L (136-145); TOTAL BILIRUBIN ADULT 0.2 MG/DL (0.2-1.0); TOTAL PROTEIN 5.7 GM/DL (6.4-8.2)
[2017-03-16] MEDS: oxyCODONE/ACETAMINOPHEN 5 MG/325 MG TAB PO PRN ×3 (03:39→23:56)
[2017-03-16] MEDS: CLINDAMYCIN 900 MG/NS PREMIX 50 ML IV SCH ×3 (04:56→22:16)
[2017-03-16] MEDS: DOCUSATE SODIUM 50 MG/SENNA 8.6 MG TAB PO SCH ×2 (05:42→18:15)
[2017-03-16] MEDS: LACTATED RINGER'S 1000 ML INJ 1,000 ML IV SCH ×3 (08:02→22:18)
[2017-03-16] MEDS: SODIUM CHLORIDE 0.9% FLUSH 10 ML FLUSH IV FLUSH SCH ×2 (08:03→22:16)
[2017-03-16] MEDS: ACETAMINOPHEN 325 MG TAB PO PRN (13:45)
--- NOTE | 2017-03-16 15:30 | HHI.OB ---
Subjective Remarks feeling better today, still has ruq and rlq pain but significantly improved. She is able to tolerate po, is voiding, passing flatus adn ambulating well. HAs not had a bowel movement. No n/v Objective Vitals/I&O Vital Signs Date Time Temp Pulse Resp B/P (MAP) Pulse Ox O2 Delivery O2 Flow Rate FiO2 03/16/17 12:30 79 03/16/17 11:54 97.4 90 18 117/57 (77) 98 03/16/17 08:25 98.0 117 18 132/64 (86) 98 03/16/17 04:15 98.9 92 17 113/59 (77) 98 03/16/17 00:30 98.6 101 19 110/76 (87) 98 03/15/17 18:44 98.8 97 18 116/79 (91) 99 03/15/17 18:12 98 Room Air 03/15/17 18:12 18 98 Room Air 03/15/17 17:32 99.2 102 18 127/73 (91) 99 Room Air 03/15/17 16:04 99.5 109 18 109/78 (88) 98 Room Air 03/15/17 15:57 18 Intake & Output 03/16/17 03/16/17 07:00 19:00 Intake Total 4803.75 ml Balance 4803.75 ml Intake Oral 2600 ml IV Total 2203.75 ml # Voids 10 # Bowel Movements 0 Result Diagram: 03/16/1721403/16/17214 Objective Remarks GENERAL: Well-nourished, well-developed patient. CARDIOVASCULAR: Regular rate and rhythm without murmurs, gallops, or rubs. RESPIRATORY: Breath sounds equal bilaterally. No accessory muscle use. ABDOMEN/GI: Abdomen soft, min tender rlq and ruq, bowel sounds present. Fundus: Firm, non-tender GENITOURINARY: Light to moderate bleeding. EXTREMITIES: No cyanosis or edema, non-tender, without signs of DVT. Medications and IVs Current Medications Medications (Trade) Dose Ordered Sig/Pedro Route Start Time Stop Time Status Last Admin (NS Flush) 2 ml BID IV FLUSH 03/15/17 21:00 (NS Flush) 2 ml UNSCH PRN IV FLUSH 03/15/17 18:00 (Tylenol) 650 mg Q4H PRN PO 03/15/17 18:00 03/16/17 13:45 (Motrin) 800 mg Q8H PRN PO 03/15/17 18:00 03/16/17 10:04 (Percocet 5-325 Mg) 1 tab Q4H PRN PO 03/15/17 18:00 03/16/17 03:39 (Americaine 20% Top Spr) 1 spray Q4H PRN TOPICAL 03/15/17 18:00 (Tucks Pads) 1 applic QID PRN TOPICAL 03/15/17 18:00 (Marisa-Colace) 2 tab Q12H PO 03/15/17 18:00 03/16/17 05:42 (Ambien) 5 mg HS PRN PO 03/15/17 18:00 (Mag-Al Plus Susp Liq) 15 ml Q8H PRN PO 03/15/17 18:00 (Zofran Odt) 4 mg Q6H PRN PO 03/15/17 18:00 Lactated Ringer's 1,000 ml @ 75 mls/hr [id number] IV 03/15/17 18:00 03/16/17 11:22 Clindamycin/ Sodium Chloride 50 ml @ 100 mls/hr Q8H IV 03/15/17 21:00 03/16/17 12:54 Gentamicin Sulfate 150 mg/ Sodium Chloride 103.75 ml @ 100 mls/ hr Q24H IV 03/15/17 20:00 03/15/17 20:22 Assessment/Plan Problem List: (1) pain ICD Codes: O90.89 - Other complications of the puerperium, not elsewhere classified; R52 - Pain, unspecified (2) Sepsis ICD Codes: A41.9 - Sepsis, unspecified organism Assessment and Plan 31 yo 6 d pp being admitted for sepsis. Most likely source would be endometritis. Blood cx and ucx have been ordered. No current wbc count yesterday or today. CT w enlarged pp uterus, mild hydronephrosis. Cont IVF, Clindamycin, Gentamicin. Tylenol for fever prn, ibuprofen and percocet for pain. Nhung Strong MD Mar 16, 2017 15:30
[2017-03-16] MEDS: GENTAMICIN INJ 150 MG in SODIUM CHLORIDE 0.9% INJ 100 ML IV SCH (22:15)
[2017-03-17 00:30] VITALS: BP 125/65; PULSE 87; RESP 17; TEMP 98.6; O2SAT 100
[2017-03-17] MEDS: oxyCODONE/ACETAMINOPHEN 5 MG/325 MG TAB PO PRN (04:28)
[2017-03-17 05:30] VITALS: BP 124/70; PULSE 75; RESP 16; TEMP 98; O2SAT 98
[2017-03-17] MEDS: DOCUSATE SODIUM 50 MG/SENNA 8.6 MG TAB PO SCH (06:01)
[2017-03-17] MEDS: CLINDAMYCIN 900 MG/NS PREMIX 50 ML IV SCH ×2 (06:01→13:53)
[2017-03-17 08:00] VITALS: BP 119/77; PULSE 71; RESP 17; TEMP 97.9; O2SAT 95
[2017-03-17 08:04] VITALS: PULSE 66
[2017-03-17] MEDS: SODIUM CHLORIDE 0.9% FLUSH 10 ML FLUSH IV FLUSH SCH (09:28)
[2017-03-17 12:11] VITALS: BP 138/65; PULSE 68; RESP 18; TEMP 97.6; O2SAT 100
[2017-03-17] MEDS ORDERED: IBUP1TAB7 PO (14:01)
[2017-03-17] MEDS ORDERED: AUGM875T3 PO (14:01)
[2017-03-17] MEDS ORDERED: FERR325T18 PO (14:01)
--- NOTE | 2017-03-17 14:01 | HHI.DCPOC ---
Discharge Care Plan Diagnosis: (1) pain (2) Sepsis (3) Endometritis Your Health Problems Are: Vaginal delivery Report Symptoms to Your Doctor -Temperature above 100.5 degrees -Redness, of incision or excessive or foul smelling drainage -Unusual pain or calf pain -Increased vaginal bleeding -Painful or difficulty urinating -Feelings of extreme sadness or anxiety after 2 weeks Goals to Promote Your Health * To prevent worsening of your condition and complications * To maintain your health at the optimal level Directions to Meet Your Goals Take your medications as prescribed Follow your dietary instruction Follow activity as directed Ensure plenty of rest for recovery Drink fluids for hydration Keep your appointments as scheduled Take your immunizations and boosters as scheduled If your symptoms worsen call your PCP, if no PCP go to Urgent Care Center or Emergency Room Smoking is Dangerous to Your Health. Avoid second hand smoke Call the 24-hour crisis hotline for domestic abuse at Nhung Strong MD Mar 17, 2017 14:01
--- NOTE | 2017-03-17 14:08 | HHI.OB ---
Subjective Remarks PT feeling markedly improved. She is "frustrated with being here," and refused am labs. She wants to go home. She has been eating well, + flatus, no bm. Ambulating and voiding w/o difficulty. Objective Vitals/I&O Vital Signs Date Time Temp Pulse Resp B/P (MAP) Pulse Ox O2 Delivery O2 Flow Rate FiO2 03/17/17 12:11 97.6 68 18 138/65 (89) 100 03/17/17 08:00 97.9 71 17 119/77 (91) 95 03/17/17 05:30 98.0 75 16 124/70 (88) 98 03/17/17 00:30 98.6 87 17 125/65 (85) 100 03/16/17 20:45 98.8 88 18 133/75 (94) 99 03/16/17 16:30 95 03/16/17 16:00 98.4 88 18 121/66 (84) 98 Intake & Output 03/17/17 03/17/17 06:59 18:59 Intake Total 1050 ml Balance 1050 ml Intake Oral 1050 ml # Voids 4 # Bowel Movements 0 Result Diagram: 03/16/1721403/16/17214 Objective Remarks GENERAL: Well-nourished, well-developed patient. CARDIOVASCULAR: Regular rate and rhythm without murmurs, gallops, or rubs. RESPIRATORY: Breath sounds equal bilaterally. No accessory muscle use. ABDOMEN/GI: Abdomen soft,nontender, no rebound, no guarding, bowel sounds present. Fundus: Firm, non-tender GENITOURINARY: Light to moderate bleeding. EXTREMITIES:1+ pitting edema, unchanged compared to yesterday. No cyanosis non -tender, without signs of DVT. Medications and IVs Current Medications Medications (Trade) Dose Ordered Sig/Pedro Route Start Time Stop Time Status Last Admin (NS Flush) 2 ml BID IV FLUSH 03/15/17 21:00 03/16/17 22:16 (NS Flush) 2 ml UNSCH PRN IV FLUSH 03/15/17 18:00 (Tylenol) 650 mg Q4H PRN PO 03/15/17 18:00 03/16/17 13:45 (Motrin) 800 mg Q8H PRN PO 03/15/17 18:00 03/16/17 10:04 (Percocet 5-325 Mg) 1 tab Q4H PRN PO 03/15/17 18:00 03/17/17 04:28 (Americaine 20% Top Spr) 1 spray Q4H PRN TOPICAL 03/15/17 18:00 (Tucks Pads) 1 applic QID PRN TOPICAL 03/15/17 18:00 (Marisa-Colace) 2 tab Q12H PO 03/15/17 18:00 03/17/17 06:01 (Ambien) 5 mg HS PRN PO 03/15/17 18:00 (Mag-Al Plus Susp Liq) 15 ml Q8H PRN PO 03/15/17 18:00 (Zofran Odt) 4 mg Q6H PRN PO 03/15/17 18:00 Lactated Ringer's 1,000 ml @ 75 mls/hr [id number] IV 03/15/17 18:00 03/16/17 22:18 Clindamycin/ Sodium Chloride 50 ml @ 100 mls/hr Q8H IV 03/15/17 21:00 03/17/17 06:01 Gentamicin Sulfate 150 mg/ Sodium Chloride 103.75 ml @ 100 mls/ hr Q24H IV 03/15/17 20:00 03/16/17 22:15 Assessment/Plan Problem List: (1) pain ICD Codes: O90.89 - Other complications of the puerperium, not elsewhere classified; R52 - Pain, unspecified (2) Sepsis ICD Codes: A41.9 - Sepsis, unspecified organism Assessment and Plan 31 yo 7 d pp being admitted for sepsis. Most likely source would be endometritis. Blood cxneg x 1 d and ucx mixed..No WBC on HD [address] w enlarged pp uterus, mild hydronephrosis. She was started on Clindamycin, Gentamicin on 03/15. She has been afebrile since admission to floor and has no further pain, beign exam today. Will send home with Augmentin bid, ibuprofen and iron BID for anemia. She will buy miralax otc to avoid constipation while on iron. She refused am labs today. Nhung Strong MD Mar 17, 2017 14:08
[2017-03-17 14:55] VITALS: PULSE 74
== END 2017-03-17 15:21 | disposition home or self-care (01) ==
LOC: NEPC 14:23 → NEDA 17:42 → UNDOADMOB 17:42 → INTOOBSV 17:55 → OBSVTOIN 17:55 → NEDA 18:27 → N05B 18:27 → UNDODISOB 03-17 15:21
PROVIDERS: ADMIT Obstetrics & Gynecology; ATTEND Obstetrics & Gynecology
DX: O90.89 Other complications of the puerperium, not elsewhere classified (principal); R52 Pain, unspecified; O85 Puerperal sepsis; O90.81 Anemia of the puerperium; N13.30 Unspecified hydronephrosis
CPT/HCPCS: 74177; 80053; 81001; 83605; 83690; 85025; 87040; 87086; 96361; 96365; 96366; 96367; 96376; 99285; G0378; J1580; J7030; J7120; Q9967